=== PATIENT | female | born 1975 | race Caucasian/White ===

== ENCOUNTER → 2021-05-04 | Outpatient (CLI) | payer OTHER ==
[2021-05-05 11:14] LABS: ANTI-DS DNA 6 IU/mL (0-9)
[2021-05-05 17:07] LABS: ANA INTERP Negative (.)
== END ==
LOC: LAB 08:55
PROVIDERS: ATTEND Physician Assistant
DX: R21 Rash and other nonspecific skin eruption (principal)
CPT/HCPCS: 36415; 86038; 86255